=== PATIENT | female | born 1950 | race Caucasian/White ===

== ENCOUNTER → 2016-06-03 | Outpatient (CLI) | payer OTHER, MEDICARE ==
--- NOTE | 2016-06-03 19:26 | DX ---
Bilateral Feet - 8 Views Total dated June 03, 2016 Indication: Left 3rd metatarsal pain. Evaluate for stress fracture. Technique: Bilateral weight-bearing AP, obliques, and lateral views. Comparison: None. Findings: The bones are normally mineralized and anatomically aligned except for minimal hallux valgu s deformity, slightly worse left than right. No fracture, bone lesion, or periosteal reaction to sugg est stress fracture. Moderate osteoarthritis of the first metatarsophalangeal joints is evidenced by eccentric joint space narrowing, marginal osteophytes, subchondral sclerosis, and erosions in the med ial first metatarsal heads, worse on the left than right. The arches are well preserved. Moderate osteoarthritis involves the right first metatarsal middle cuneiform joint evidenced by compl ete joint space loss and dorsal osteophytes. Impression: 1. No evidence of stress fracture. 2. Bilateral hallux valgus deformity and moderate bilateral first metatarsophalangeal osteoarthritis. 3. Localized productive arthropathy at the right second metatarsal cuneiform joint.
== END ==
LOC: CIMAGING 12:56
PROVIDERS: ATTEND Podiatrist
DX: M20.12 Hallux valgus (acquired), left foot (principal); M20.11 Hallux valgus (acquired), right foot; M19.071 Primary osteoarthritis, right ankle and foot; M19.072 Primary osteoarthritis, left ankle and foot
CPT/HCPCS: 73630-PO

== ENCOUNTER 2017-04-25 07:15 | Inpatient (IN) | payer OTHER, MEDICARE ==
--- NOTE | 2017-04-24 17:12 | GHP ---
[f rep st] PREOP HISTORY AND PHYSICAL DATE OF ADMISSION: 04/25/2017 PROBLEM: Severe right hip OA. HISTORY OF PRESENT ILLNESS: The patient is a 66-year-old female who will be admitted for a right tot al hip arthroplasty with Dr. Ott at the [facility] on April 25, 2017. The patie nt has had a previous left total hip arthroplasty [address] Ott with a very good result. Regarding the right hip, she has had severe progressive debilitating pain which has interfered with her activities. She has difficulties putting on shoes and socks on the right side. She can no longe r do all of her activities secondary to her pain. She has tried and failed pharmacological managemen t, physical therapy exercises, and rest. Because of her progressive pain, she has decided to proceed with a right total hip arthroplasty. The patient does not have a PCP. PAST MEDICAL HISTORY: Pertinent for GERD. No history of MRSA, DVT, PE, or hepatitis. CURRENT MEDICATIONS: Acyclovir, B complex, CoQ10, fluoxetine, glycine, omeprazole, vitamin C, vitami n D, vitamin E, and biotin. MEDICATION ALLERGIES: Sulfa, which causes a rash. 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 She is a nonsmoker. No alcohol intake. Moderate caffeine intake. She lives with her significant other. FAMILY HISTORY: Pertinent for arthritis and hypertension. PHYSICAL EXAMINATION: VITALS: Height 5 feet 4 inches tall, weight 140 pounds, BMI 24. GENERAL: Corbin cantu is a healthy-appearing 66-year-old female. HEENT: Head is normocephalic, atraumatic. Eyes are PE RRLA. Conjunctivae and sclerae are clear. Mouth she has good oral hygiene without any loose teeth. LUNGS: Clear. HEART: Regular rate and rhythm without murmurs, gallops, rubs. EXTREMITIES: Perti nent findings are limited to the patient's right hip. She has full hip extension, 90 degrees of hip flexion with pain beyond. Zero degrees of internal rotation with pain, 35-40 degrees of external rot ation. DIAGNOSTIC IMAGING: Recent x-rays taken of the patient's right hip show severe pyoe-cl-bbdx arthriti s with peripheral osteophyte formation and increased subchondral sclerosis. IMPRESSION ON ADMISSION: Severe right hip osteoarthritis. PLAN: The plan will be for the patient to undergo a right total hip arthroplasty with Dr. Ott at the [facility]. The surgery has been described to the patient including the risks, b enefits, and expectations. She understands the importance of postoperative physical therapy. She un derstands the risk of sciatic nerve injury, leg length discrepancy, and dislocation. All her questio ns are answered, and she consents to have surgery here in the office today. /[id number]/MODL
[~2017-04-25 07:15] MED LIST: NS IV ONE; POVIDONE-IODINE 20 ML in SODIUM CL IRRIG SOLUTION 500 ML IRR ONE; ROPIVACAINE 0.2% 80 MG, EPINEPHrine 0.2 MG, KETOROLAC TROMETHAMINE 30 MG in BAG 0 ML IU ONE; TRANEXAMIC ACID IV ONE
[2017-04-25] MEDS ORDERED: LIDOCAINE 1% 2 ML INJ ONE (12:29)
[2017-04-25] MEDS ORDERED: FAMOTIDINE 20 MG TAB PO ONE (12:37)
[2017-04-25] MEDS ORDERED: DEXAMETHASONE 4 MG/ML VIAL IVP ONE (12:37)
[2017-04-25] MEDS ORDERED: ceFAZolin 2 GM/SWFI 2 GM/20 ML SYR IVP ONE (12:37)
[2017-04-25] MEDS ORDERED: ACETAMINOPHEN 325 MG TAB PO ONE (12:37)
[2017-04-25] MEDS ORDERED: LR 1,000 ML IV ONE (12:38)
[2017-04-25] MEDS ORDERED: LIDOCAINE 1% 2 ML INJ ID PRN (12:38)
[2017-04-25 13:27] LABS: % IMMATURE GRANULYOCYTES 0.2 % (0.0-1.1); ABSOLUTE IMMATURE GRANULOCYTES 0.01 10^3/uL (0.00-0.10); ADD DIFF? NO; ADD MORPH? NO; ADD SCAN? NO; ATYPICAL LYMPHOCYTE FLAG 0 (0-99); FRAGMENT RBC FLAG 0 (0-99); HEMATOCRIT 44.7 % (38.0-47.0); HEMOGLOBIN 14.9 g/dL (12.6-16.3); LEFT SHIFT FLG 0 (0-99); LIPEMIA HEMOLYSIS FLAG 80 (0-99); MEAN CELL HEMOGLOBIN 31.4 pg (27.9-34.1); MEAN CELL HEMOGLOBIN CONCENTR. 33.3 g/dL (32.4-36.7); MEAN CELL VOLUME 94.3 fL (81.5-99.8); MEAN PLATELET VOLUME 9.7 fL (8.7-11.7); PLATELET CLUMPS FLAG 0 (0-99); PLATELET COUNT 166 10^3/uL (150-400); RED BLOOD CELL COUNT 4.74 10^6/uL (4.18-5.33); RED CELL DISTRIBUTION WIDTH 12.5 % (11.5-15.2)
[2017-04-25] MEDS ORDERED: VANCOMYCIN 1 GM VIAL ONE (14:20)
[2017-04-25] MEDS ORDERED: ceFAZolin 1 GM/5 ML SYR ONE (14:21)
--- NOTE | 2017-04-25 14:23 | PDANEPAE ---
ANE History of Present Illness 66 year odl female w PMHx of mild depression and reflux presents for right total hip arthroplasty. ANE Past Medical History - Cardiovascular History Hx Hypertension: No Hx Arrhythmias: No Hx Chest Pain: No Hx Coronary Artery / Peripheral Vascular Disease: No Hx CHF / Valvular Disease: No Hx Palpitations: No - Pulmonary History Hx COPD: No Hx Asthma/Reactive Airway Disease: No Hx Recent Upper Respiratory Infection: No Hx Oxygen in Use at Home: No Hx Sleep Apnea: No Sleep Apnea Screening Result - Last Documented: Negative - Neurologic History Hx Cerebrovascular Accident: No Hx Seizures: No Hx Dementia: No - Endocrine History Hx Diabetes: No Hypothyroid: No Hyperthyroid: No Obesity: no - Renal History Hx Renal Disorders: No - Liver History Hx Hepatic Disorders: No - Neurological & Psychiatric Hx Hx Neurological and Psychiatric Disorders: Yes Neurological / Psychiatric History Comment: slight depression - Cancer History Hx Cancer: No - Congenital Disorder History Hx Congenital Disorders: No - GI History Hx Gastrointestinal Disorders: Yes Gastrointestinal History Comment: reflux - Other Health History Other Health History: wears glasses. see's management advisor regularly - Chronic Pain History Chronic Pain: Yes (right hip) - Surgical History Prior Surgeries: 07/12/10 left KATHY with NamrataMaribell bernal 1970's ANE Review of Systems Review of systems is: negative Review of Systems: - Exercise capacity Exercise capacity: >=4 METS METS (RN): 4 METS ANE Patient History - Allergies Allergies/Adverse Reactions: Sulfa (Sulfonamide Antibiotics) Allergy (Severe, Verified 03/22/17 12:17) HIVES SWELLING oxytetracycline [From Terramycin] Allergy (Verified 03/22/17 12:17) HIVES SWELLING oxytetracycline HCl [From Terramycin] Allergy (Verified 03/22/17 12:17) HIVES SWELLING - Home Medications Home medications: home medication list seen and reviewed Home Medications: FLUoxetine [Prozac 10 MG (*)] 10 mg PO DAILY 05/11/15 [Last Taken 04/24/17] [place]-3 Fatty Acids [Fish Oil 1000 mg (*)] 1,000 mg PO DAILY 05/11/15 [Last Taken 04/24/17] Ascorbic Acid [Vitamin C 500 mg (*)] 1,000 mg PO DAILY 03/15/17 [Last Taken 09/05] Cholecalciferol Vit D3 [Vitamin D3 (*)] 2,000 units PO DAILY 03/15/17 [Last Taken 04/24/17] Estrogen/Progesterone Cream 1 constance TP DAILY 03/15/17 [Last Taken 04/18/17] - NPO status NPO Status: no food or drink >8 hours NPO Since - Liquids (Date): 04/25/17 NPO Since - Liquids (Time): 08:00 NPO Since - Solids (Date): 04/24/17 NPO Since - Solids (Time): 20:00 - Anes Hx Anes Hx: no prior problems - Smoking Hx Smoking Status: Never smoked - Alcohol Use Alcohol Use: Rarely - Family Anes Hx Family Anes Hx: neg - N/A Family Hx Anesthesia Complications: none ANE Labs/Vital Signs - Labs Result Diagrams: 04/25/17 13:05 - Vital Signs Vital Signs: reviewed preoperatively; see RN documention for details Blood Pressure: 107/63 Heart Rate: 68 Respiratory Rate: 16 O2 Sat (%): 93 Height: 162.56 cm Weight: 63.503 kg ANE Physical Exam - Airway Neck exam: FROM Mallampati Score: Class 2 Mouth exam: normal dental/mouth exam - Pulmonary Pulmonary: no respiratory distress - Cardiovascular Cardiovascular: regular rate and rhythym - ASA Status ASA Status: II ANE Anesthesia Plan Anesthesia Plan: GA w LMA (General anesthesia as "back-up" plan), MAC, spinal Regional Anesthesia: single shot NB, adductor canal FNB, POPC/PSR Total IV Anesthesia: No
--- NOTE | 2017-04-25 15:07 | PDHPUP ---
History & Physical Update H&P update statement: This history and physical update is based on an assessment of the patient which was completed after admission or registration (within 24 hours), but prior to the surgery/procedure. H&P update: H&P reviewed & patient examined, no change in patient's condition since H&P completed
[2017-04-25] MEDS ORDERED: PROPOFOL/EMULSION 500 MG/50 ML BOTTLE IV ONE (15:53)
[2017-04-25] MEDS ORDERED: ONDANSETRON 4 MG/2 ML VIAL IVP PRN ×2 (16:48→17:38)
[2017-04-25] MEDS ORDERED: HYDROmorphONE/DILAUDID 1 MG/ML INJ IVP PRN (16:48)
[2017-04-25] MEDS ORDERED: HYDROCODONE/APAP 5/325 TAB PO PRN (16:48)
[2017-04-25] MEDS ORDERED: fentaNYL 100 MCG/2 ML INJ IVP PRN (16:48)
[2017-04-25] MEDS ORDERED: LR 500 ML IV PRN (16:48)
[2017-04-25] MEDS ORDERED: NALOXONE HCL 0.4 MG/ML INJ IVP PRN (16:48)
--- NOTE | 2017-04-25 17:24 | POSTOPPROG ---
Post Op Note Date of Operation: 04/25/17 Surgeon: Chandrakant Ott Finish Opener: Vikram Levine/Dutch Bradford Anesthesiologist: Dr. Vikram Calderon Anesthesia: IV Sedation, Spinal Post-op Diagnosis: Right hip arthritis Procedure: Right total hip arthroplasty Inf/Abcess present in the surg proc area at time of surgery?: No EBL: 100-500
[2017-04-25] MEDS ORDERED: diphenhydrAMINE 25 MG CAP PO PRN (17:38)
[2017-04-25] MEDS ORDERED: BISACODYL 10 MG SUPP PR PRN (17:38)
[2017-04-25] MEDS ORDERED: PROMETHAZINE HCL 25 MG SUPPR PR PRN (17:38)
[2017-04-25] MEDS ORDERED: LACTULOSE 20 GM/30 ML UDCUP PO PRN (17:38)
[2017-04-25] MEDS ORDERED: NS 500 ML IV PRN (17:38)
[2017-04-25] MEDS ORDERED: METOCLOPRAMIDE 10 MG/2 ML VIAL IVP PRN (17:38)
[2017-04-25] MEDS ORDERED: TEMAZEPAM 15 MG CAP PO PRN (17:38)
[2017-04-25] MEDS ORDERED: PROMETHAZINE HCL 25 MG/ML INJ IVP PRN (17:38)
[2017-04-25] MEDS ORDERED: POLYETHYLENE GLYCOL 3350 17 GM PKT PO PRN (17:38)
[2017-04-25] MEDS ORDERED: DIPHENOXYLATE/ATROPINE LOMOTIL 1 TAB PO PRN (17:38)
[2017-04-25] MEDS ORDERED: ONDANSETRON DISINTEGRATING 4 MG TAB PO PRN (17:38)
[2017-04-25] MEDS ORDERED: MAGNESIUM HYDROXIDE 30 ML UDCUP PO PRN (17:38)
[2017-04-25] MEDS ORDERED: LR 1,000 ML IV SCH (18:00)
--- NOTE | 2017-04-25 18:33 | POSTANESTH ---
Post Anesthetic Evaluation Cardiovascular Status: Normal, Stable, Similar to Pre-Op Cond Respiratory Status: Normal, Stable, Similar to Pre-op Cond. Level of Consciousness/Mental Status: Can Participate in Eval, Alert and Oriented Pain Control: Adequate, Prn Tx Ordered (No pain, but spinal anesthetic is not fully resolved at this time. Patient moving feet, pain well controlled. Hemodynamically stable and SpO2 great on room air.) Nausea/Vomiting Control: Adequate, Prn Tx Ordered Complications Possibly Related to Anesthesia: None Noted
[2017-04-25] MEDS: ACETAMINOPHEN 325 MG TAB PO SCH ×2 (18:55→23:47)
[2017-04-25] MEDS: SENNOSIDES/DOCUSATE SODIUM TAB PO SCH (21:26)
[2017-04-25] MEDS: CYCLOBENZAPRINE 10 MG TAB PO PRN (21:27)
[2017-04-25] MEDS: FAMOTIDINE 20 MG TAB PO SCH (21:27)
[2017-04-25] MEDS: ASPIRIN 325 MG TAB PO SCH (21:27)
[2017-04-25] MEDS: oxyCODONE IR 5 MG TAB PO PRN (21:28)
--- NOTE | 2017-04-25 22:01 | GOP ---
[f rep st] OPERATIVE REPORT DATE OF OPERATION: 04/25/2017 SURGEON: Chandrakant Ott MD TEACHER EARLY CHILDHOOD DEVELOPMENT: Ezequiel Levine, PAC; Dutch Bradford CFA. ANESTHESIA: A combination of Marcaine, spinal, and light sedation. ANESTHESIOLOGIST: Ezequiel Calderon MD. PREOPERATIVE DIAGNOSIS: Right hip degenerative arthritis. POSTOPERATIVE DIAGNOSIS: Right hip degenerative arthritis. PROCEDURE PERFORMED: Right total hip arthroplasty, Oxinium femoral head on highly cross-linked polye thylene cup liner. FINDINGS: ESTIMATED BLOOD LOSS: 300 mL. I used a Gaines and Nephew R3 hemispherical solid-backed acetabular shell with an outside diameter of 50 mm. The liner was a Gaines and Nephew R3 20-degree lipped, highly cross-linked liner with an insid e diameter of 32 mm. The femoral component was a press-fit Gaines and Nephew high-offset Synergy stem in size 12. The femoral head was a Gaines and Nephew Oxinium head with a -3 mm neck length and a 32 mm outside diameter. Vikram Levine and Dutch Bradford acted as surgical assistants. Their assistance was a medical necess ity for safe completion of the procedure. DESCRIPTION OF PROCEDURE: The patient was given 2 g of IV Ancef preoperatively within 60 minutes of surgery. She also received IV tranexamic acid at a dose of 20 mg/kg. She was placed on the [facility] g room table and given spinal anesthesia with Marcaine by Dr. Calderon. She was then placed supine and given light sedation. A Olea catheter was not used. She wore a LUKAS stocking and SCD on the nonope rative leg. She was rolled to the left lateral decubitus position. The position was secured with [facility] pegboard table attachment. An axillary roll was used and all pressure points were carefully padded . I was careful to lock her pelvis in a vertical position. Her perineum was isolated with plastic a dhesive drapes. The right hip and right lower extremity were prepped with ChloraPrep. They were kia ped free using sterile sheets, stockinette, and Ioban plastic drapes. The World Health Organization time-out was performed to verify the correct surgical side and site and the correct patient identity. The [place] time-out was also performed. I made a 4 to 5 inch straight oblique posterolateral hip skin incision. Subcutaneous tissues were sh arply divided, and hemostasis was obtained using electrocautery. The fascia suhas was identified and split along the axis of its fibers. I curved posteriorly and proximally and split the fascia of the gluteus saud and bluntly split the muscle fibers in line with their orientation. A Charnley self- retaining retractor was inserted. Her sciatic nerve was located, partially exposed, and protected th roughout the procedure. The proximal external rotators and the posterior hip capsule were divided as separate layers at the base of the femoral neck, tagged, and reflected posteriorly. A smooth 8 inch Steinmann pin was inserted vertically into the ilium, superior to the acetabulum. An 8 inch drill b it was inserted vertically into the greater trochanter and parallel to the first pin. The distance b etween the two was measured for leg length reference. Her femoral head was dislocated posteriorly. Severe degenerative changes were present on the femoral head. The femoral neck was osteotomized at t he appropriate level and inclination. I was careful to preserve all the posterior capsule and most of the anterior capsule. The remnant of her damaged labrum was excised. I prepared the femur first. This allowed me to banquet chef the amount of natural femoral neck anteversion. This in turn allowed me to later determine the correct amount of cup anteversion. She had approxim ately 10 degrees of natural femoral neck anteversion. The canal was opened laterally with a box chis el. I reamed and broached sequentially up to a size 12 Gaines and Nephew Synergy stem. I used the 12 broach as a trial stem. I was careful to lateralize adequately. Appropriate retractors were inserted to expose the acetabulum. The acetabulum was reamed sequentiall y up to 49 mm. I selected a 50 mm Gaines and Nephew R3 solid-backed acetabular shell. This was tappe d securely into place in the proper degree of inclination and anteversion. I used the transverse lisa tabular ligament and other acetabular bony landmarks to help me properly orient the cup. Fixation wa s very tight, and supplemental screw fixation was not necessary. I inserted a screw-in metal dome ho le plug. I performed a series of trial reductions to determine length and stability. I concluded that the siz e 12 stem with high offset and a -3 mm neck length with a 32 mm head and a 20-degree lipped liner gasasha cantu me the proper combination of appropriate length and good anterior and posterior stability. The 20-degree lipped Gaines and Nephew R3 highly cross-linked polyethylene liner was inserted and josé ed securely into place. I selected the Gaines and Nephew Synergy stem in a size 12 with high offset. This was inserted press-fit and was very tight. I did 1 final trial reduction and confirmed that th e -3 mm neck length with a 32 mm head was the proper combination. The Gaines and Nephew Oxinium head with an outside diameter of 32 mm and a neck length of -3 mm was tapped securely onto the clean trunn ion. The acetabulum was irrigated and cleaned, and the hip was reduced 1 final time. She had excell ent anterior and posterior stability and appropriate length. 40 mL of the joint anesthetic cocktail was injected into the capsule, the deep musculature, and subcu taneous tissues around the skin edges. The joint was thoroughly irrigated 1 final time with a dilute Betadine solution. Her sciatic nerve was reinspected and looked unharmed. The external rotators an d the posterior hip capsule were repaired in separate layers with #2 FiberWire sutures through drill holes in the greater trochanter. The fascia suhas was closed first with a couple of interrupted figur e-of-eight #2 FiberWire sutures followed by a running #2 barbed Ethicon Stratafix PDO suture. Subcut aneous tissues were closed with a running 0 barbed Ethicon Stratafix Monoderm suture. The skin was c losed with a running 3-0 barbed Ethicon Stratafix Monoderm subcuticular suture. The skin edges were reapproximated and sealed with Dermabond glue. The wound was covered with a large Mepilex waterproof sterile surgical dressing. A long leg LUKAS stocking and SCD were applied to her right lower extremity. She wore a stocking and S CD on the opposite leg during the procedure. An abduction pillow was placed between her knees. She was awakened from anesthesia and rolled to the supine position on her hospital bed. She was taken to the PACU in satisfactory condition. There were no recognized intraoperative complications. Copy requested to: Dr. Yo Thornton, [place] /[id number]/MODL
[2017-04-25] MEDS: traMADol 50 MG TAB PO PRN (23:47)
[2017-04-25] MEDS: ceFAZolin 2 GM/DEXTROSE 100 ML IV SCH (23:58)
[2017-04-26] MEDS: oxyCODONE IR 5 MG TAB PO PRN ×3 (00:57→10:30)
[2017-04-26] MEDS: KETOROLAC 30 MG/1 ML SDV IVP PRN ×2 (01:05→07:38)
[2017-04-26 04:24] VITALS: RESP 16; O2SAT 97
[2017-04-26 05:13] LABS: HEMATOCRIT 39.9 % (38.0-47.0); HEMOGLOBIN 13.6 g/dL (12.6-16.3)
[2017-04-26] MEDS: ACETAMINOPHEN 325 MG TAB PO SCH (05:35)
[2017-04-26] MEDS: CYCLOBENZAPRINE 10 MG TAB PO PRN (06:41)
[2017-04-26] MEDS: ceFAZolin 2 GM/DEXTROSE 100 ML IV SCH (07:36)
[2017-04-26 07:40] VITALS: BP 107/71; PULSE 68; TEMP 98.1
[2017-04-26] MEDS: ASPIRIN 325 MG TAB PO SCH (07:44)
[2017-04-26] MEDS: FAMOTIDINE 20 MG TAB PO SCH (07:45)
[2017-04-26] MEDS: traMADol 50 MG TAB PO PRN (07:46)
[2017-04-26] MEDS: SENNOSIDES/DOCUSATE SODIUM TAB PO SCH (07:46)
[2017-04-26] MEDS ORDERED: FERROUS SULFATE 140 MG TAB.ER PO SCH (09:00)
[2017-04-26] MEDS ORDERED: FLUoxetine 10 MG CAP PO SCH (09:00)
--- NOTE | 2017-04-26 09:34 | SOAPPROG ---
SOAP Progress Note Assessment/Plan: Assessment: POD #1, s/p R KATHY Awake, alert, afebrile. Mild pain. Sciatic nerve intact. Dressing clean and dry. H/H good. VSS. post op films look good. OOB with PT. Plan: D/c to friends house later today. 04/26/17 09:32 Objective: Vital Signs Temp Pulse Resp BP Pulse Ox 36.7 C 68 16 107/71 97 04/26/17 07:39 04/26/17 07:39 04/26/17 07:39 04/26/17 07:39 04/26/17 07:39 Laboratory Results 04/26/17 04:46 04/25/17 04/26/17 04/27/17 05:59 05:59 05:59 Intake Total 1795 200 Balance 1795 200 ICD10 Worksheet Patient Problems: Problems Problem Status Onset Osteoarthritis of right hip Acute Substernal chest pain Acute
--- NOTE | 2017-04-26 11:53 | ASMTCMCOM ---
CM Note CM Note Notes: CJR pre-call will stay w friend (who is a BIOLOGICAL INSPECTOR) 1 week. No CM d/c needs identified. Date Signed: 04/26/2017 11:53 AM Electronically Signed By:BETH Alcantara
--- NOTE | 2017-04-26 11:54 | ASDISCHSUM ---
Discharge Information Plan Status:Home with No Needs Medically Cleared to Leave: Discharge Date:04/26/2017 11:17 AM CM D/C Disposition:Home, Routine, Self-Care ADT D/C Disposition:Home, Routine, Self-Care Projected Discharge Date:04/26/2017 11:17 AM Transportation at D/C: Discharge Delay Reason: Follow-Up Date:04/26/2017 11:17 AM Discharge Slot: Final Diagnosis: Placement Information Patient Contact Information Contact Name:FLORYCRISTY Relationship:Luis Carlos Address: Work Phone: City: [facility] Phone: State/Zip Code: Email: Financial Information Financial Class: Primary Plan Desc:MEDICARE INPATIENT Primary Plan Number:[id number] Secondary Plan Desc:AARP/MDR SUPPLEMENT Secondary Plan Number:[id number] Assessment Information [facility] CM Progress Note CM Note CM Note Notes: CJR pre-call will stay w friend (who is a FISH CONSERVATIONIST) 1 week. No CM d/c needs identified. Date Signed: 04/26/2017 11:53 AM Electronically Signed By:BETH Alcantara Intervention Information
--- NOTE | 2017-04-26 14:10 | GDS ---
[f rep st] DISCHARGE SUMMARY ADMISSION DIAGNOSIS: Severe right hip osteoarthritis. DISCHARGE DIAGNOSIS: Severe right hip osteoarthritis. PROCEDURE PERFORMED: Right total hip arthroplasty. POSTOPERATIVE COMPLICATIONS: None. CONDITION ON DISCHARGE: Improved. DESCRIPTION OF HOSPITAL COURSE: The patient was admitted to the hospital on the day of surgery. Her admission white blood cell count was 5.31. H and H was 14.9 and 44.7, respectively. The same day under a combination of IV sedation and Marcaine spinal anesthesia, the patient underwent a right total hip arthroplasty. She was treated with multimodal DVT prophylaxis, including Isreal stoc kings, SCDs, and early mobilization. On the 1st postoperative day, the patient's H and H was 13.6 and 39.9. She did not receive any trans fused blood. She was able to void following surgery without difficulties. Sciatic nerve was intact. She was seen by Physical Therapy and made good progress with hip range of motion exercises and ambu lation. By the time of discharge, the patient was independent with her walker and afebrile. DISPOSITION: The patient is discharged to her home. She will go directly to outpatient physical the rapy. Full-strength aspirin x21 days. She has prescriptions at home for oxycodone and tramadol and Chambers. Isreal stockings x1 week. Weightbearing as tolerated. Copy requested to: PCP listed in [employer] Irena Kearns /[id number]/MODL
== END 2017-04-26 11:17 | disposition home or self-care (01) | DRG 470 ==
LOC: F3N 12:01
PROVIDERS: ADMIT Orthopaedic Surgery; ATTEND Orthopaedic Surgery
PROC: 0SR90JZ Replacement of Right Hip Joint with Synthetic Substitute, Open Approach (ICD-10-PCS; principal; 2017-04-25 14:45)
DX: M16.11 Unilateral primary osteoarthritis, right hip (principal); K21.9 Gastro-esophageal reflux disease without esophagitis; Z96.642 Presence of left artificial hip joint
CPT/HCPCS: 97110-GP; 97161-GP; 97165-GO; G8978-GP-CI; G8979-GP-CI; G8980-GP-CI; G8987-GO-CI; G8988-GO-CI; G8989-GO-CI; J0171; J0690; J1100; J1885; J2704; J2795; J3370

== ENCOUNTER → 2018-05-04 | Outpatient (CLI) | payer OTHER, MEDICARE | LOC: FIMAGING 09:10 | PROVIDERS: ATTEND Internal Medicine | DX: N85.8 Other specified noninflammatory disorders of uterus (principal); N93.8 Other specified abnormal uterine and vaginal bleeding; Z79.890 Hormone replacement therapy ==